=== PATIENT | female | born 1970 | race Caucasian/White ===

== ENCOUNTER 2021-05-11 17:10 | Emergency (ER) | payer OTHER ==
[2021-05-11] MEDS ORDERED: HYDROmorphone 1 MG/ML Syringe IVPUSH ONE (17:20)
--- NOTE | 2021-05-11 17:26 | EDM.PDOC ---
ED HPI GENERAL MEDICAL PROBLEM - General Chief Complaint: Lower Extremity Injury/Pain Stated Complaint: [facility] Time Seen by Provider: 05/11/21 17:17 Source of Information: Reports: Patient, RN Notes Reviewed History Limitations: Reports: No Limitations - History of Present Illness INITIAL COMMENTS - FREE TEXT/NARRATIVE: Patient is a 51-year-old female brought into the ER via [facility] for a left ankle injury. Patient was outside of [facility], slipped on the ice and injured her left ankle. She is not sure if the ankle went underneath of her however she did have pain in this ankle directly after this and has not been able to place weight on the ankle. There is an obvious deformity noted, the patient's foot is displaced laterally. The foot itself is slightly julia in appearance, but she can still wiggle her toes and pulses are palpable. Not been able to move her ankle at the ankle joint. States she was given some pain medication in the ambulance, and review of EMS notes states this is 1 mg IV Dilaudid. States that this helped a little bit. Patient denies any other sick- like symptoms, fever/chills, cough/shortness of breath, nausea/vomiting /diarrhea. States that she last ate at around 11 AM. Left Ankle Pain Score (Numeric/FACES): 8 - Related Data Allergies Allergy/AdvReac Type Severity Reaction Status Date / Time No Known Allergies Allergy Verified 05/11/21 17:15 Home Meds: Home Meds ALPRAZolam [Xanax] 1 mg PO DAILY 05/11/21 [History] ALPRAZolam [Xanax] 2 mg PO BEDTIME 05/11/21 [History] Venlafaxine [Effexor] 1 tab PO DAILY 05/11/21 [History] oxyCODONE HCl/Acetaminophen [Oxycodone-Acetaminophen 5-325] 1 tab PO Q6H PRN #20 tablet 05/11/21 [Rx] Past Medical History HEENT History: Reports: Impaired Vision Psychiatric History: Reports: Anxiety Other Endocrine/Metabolic History: thyroid goiter removed half thyroid Social & Family History - Tobacco Use Tobacco Use Status *Q: Current Every Day Tobacco User Years of Tobacco use: 30 Packs/Tins Daily: 1 Used Tobacco, but Quit: No - Caffeine Use Caffeine Use: Reports: Coffee, Soda - Recreational Drug Use Recreational Drug Use: Yes Review of Systems - Review of Systems Review Of Systems: Comprehensive ROS is negative, except as noted in HPI. ED EXAM, GENERAL - Physical Exam Exam: See Below Exam Limited By: No Limitations General Appearance: Alert, WD/WN, No Apparent Distress Respiratory/Chest: No Respiratory Distress, Lungs Clear, Normal Breath Sounds, No Accessory Muscle Use, Chest Non-Tender Cardiovascular: Normal Peripheral Pulses, Regular Rate, Rhythm, No Edema GI/Abdominal: Normal Bowel Sounds, Soft, Non-Tender, No Distention, No Mass Extremities: Normal Capillary Refill, Other (Left foot is slightly julia in appearance, pulses are palpable and range of motion is with intact in the toes. Denying any numbness or tingling.) Neurological: Alert, Oriented, Normal Cognition, No Motor/Sensory Deficits Psychiatric: Normal Affect, Normal Mood Skin Exam: Warm, Dry, Intact, No Rash Course - Vital Signs Last Recorded V/S: Last Vital Signs Temp 99.2 F 05/11/21 18:43 Pulse 79 05/11/21 18:43 Resp 16 05/11/21 18:43 BP 147/91 H 05/11/21 18:43 Pulse Ox 98 05/11/21 18:43 - Orders/Labs/Meds Orders: Active Orders 24 hr Category Date Time Status Notify Provider Consults [RC] ASDIRECTED Care 05/11/21 17:58 Ordered Consult to Physician [CONS] Stat Cons 05/11/21 17:57 Ordered Ankle 2V Lt [CR] Stat Exams 05/11/21 19:06 Ordered DME for Discharge [COMM] Routine Oth 05/11/21 19:13 Ordered Meds: Medications Discontinued Medications Generic Name Dose Route Start Last Admin Trade Name Horacio PRN Reason Stop Dose Admin Fentanyl Confirm 05/11/21 18:22 Fentanyl 100 Mcg/2 Ml Sdv Administered 05/11/21 18:23 Dose 100 mcg .ROUTE .STK-MED ONE Hydromorphone HCl 1 mg 05/11/21 17:20 05/11/21 17:28 Hydromorphone 1 Mg/Ml Syringe IVPUSH 05/11/21 17:21 1 mg ONETIME ONE Administration Midazolam HCl Confirm 05/11/21 18:23 Midazolam 1 Mg/Ml 2 Ml Sdv Administered 05/11/21 18:24 Dose 2 mg .ROUTE .STK-MED ONE Propofol Confirm 05/11/21 18:22 Propofol 200 Mg/20 Ml Sdv Administered 05/11/21 18:23 Dose 200 mg .ROUTE .STK-MED ONE - Re-Assessments/Exams Free Text/Narrative Re-Assessment/Exam: 05/11/21 17:25 Patient presents to the ER for left ankle injury, we will go ahead and repeat 1 mg IV Dilaudid, and get x-rays for initial management. 05/11/21 17:56 X-rays demonstrate an ankle that is posteriorly dislocated, with a distal tib- fib fracture. Due to the nature of the injury, and census in the ER, I have consulted Dr. Rehman for further management of this patient and he did agree. 05/11/21 18:15 Official radiology read has been performed, trimalleolar fracture with additional fracture of the anterior tibial corner, dislocation of the tibia and fibula anterior to the talus. There was some soft tissue swelling, and calcaneal spur is also identified. Again Dr. Rehman will begin to manage this patient for splinting and reduction purposes. 05/11/21 19:14 Dr. Rehman was in and was able to get the ankle reduced back and splinted without difficulty. States that post reduction films are acceptable. Patient will be given some crutches from the DME closet to remain nonweightbearing on the extremity. Departure - Departure Time of Disposition: 19:17 Disposition: Home, Self-Care 01 Condition: Good Clinical Impression: Closed trimalleolar fracture Qualifiers: Encounter type: initial encounter Laterality: left Qualified Code(s): S82.852A - Displaced trimalleolar fracture of left lower leg, initial encounter for closed fracture - Discharge Information *PRESCRIPTION DRUG MONITORING PROGRAM REVIEWED*: Yes *COPY OF PRESCRIPTION DRUG MONITORING REPORT IN PATIENT MONET: No Prescriptions: oxyCODONE HCl/Acetaminophen [Oxycodone-Acetaminophen 5-325] 1 tab PO Q6H PRN #20 tablet PRN Reason: Pain Instructions: Complex Ankle Fracture, Pain Medicine Instructions, [id number] Referrals: Jakob Rehman MD [Physician] - Forms: ED Department Discharge Additional Instructions: You have been evaluated in the ED for your left ankle injury. Your x-ray demonstrated a trimalleolar fracture of your left ankle that was dislocated as well, your injury was reduced, and a splint was placed on your leg at this time. You were given crutches for ongoing management, so you may remain nonweightbearing on the extremity. Please use ice as tolerated to the affected area. You may elevate the affected area to provide further relief from swelling. You may take Tylenol 500 mg or ibuprofen 600mg q6 hrs for pain relief. Please do so until you have a tolerable level of pain with activity. Do not exceed 4000mg Tylenol, Do not exceed 3200mg ibuprofen in a 24 hour time period. You were given a prescription for a strong pain medication, oxycodone/acetaminophen 5/325, please take 1 tab every 6 hours as needed for pain not relieved by Tylenol or ibuprofen alone. Please note this does contain Tylenol in it, so do not take more than 4000 mg in a 24-hour time span. These medications can be addictive, so please take as few as possible to achieve adequate pain control. These meds can also be quite constipating, recommend that you increase your oral fluid intake and take a stool softener like MiraLAX while taking these medications. This medication was electronically sent to the [facility] located in the [employer] store. Please call Ortho for follow-up and further evaluation Dr. Rehman is our orthopedic surgeon, his office number is [phone]. Please call and set up an appointment as soon as possible for further management. Please return to ED if your symptoms should change or worsen. Sepsis Event Note (ED) - Evaluation Sepsis Screening Result: No Definite Risk - Focused Exam Vital Signs: Vital Signs Temp Pulse Resp BP Pulse Ox 05/11/21 18:43 99.2 F 79 16 147/91 H 98 05/11/21 17:31 98.3 F 70 18 131/95 H 100 05/11/21 17:12 96.8 F L 66 20 146/94 H 100 - My Orders Last 24 Hours: My Active Orders 05/11/21 17:57 Consult to Physician [CONS] Stat 05/11/21 17:58 Notify Provider Consults [RC] ASDIRECTED 05/11/21 19:06 Ankle 2V Lt [CR] Stat 05/11/21 19:13 DME for Discharge [COMM] Routine - Assessment/Plan Last 24 Hours: My Active Orders 05/11/21 17:57 Consult to Physician [CONS] Stat 05/11/21 17:58 Notify Provider Consults [RC] ASDIRECTED 05/11/21 19:06 Ankle 2V Lt [CR] Stat 05/11/21 19:13 DME for Discharge [COMM] Routine
--- NOTE | 2021-05-11 17:50 | CR ---
Left ankle: Portable AP and lateral views of the ankle were obtained. Comparison: No prior study is available. Fracture is seen within the lateral malleolus, medial malleolus and posterior malleolus. Fracture is also noted off the anterior corner of the tibia. There is dislocation of the tibia and fibula anterior to the talus. Calcaneal spurs are seen within the plantar margin and within the attachment of the Achilles tendon. Diffuse soft tissue swelling is noted. Impression: 1. Trimalleolar fracture with additional fracture off the anterior tibial corner. 2. Dislocation of the tibia and fibula anterior to the talus. 3. Calcaneal spurs and soft tissue swelling. Diagnostic code #3
--- NOTE | 2021-05-11 18:16 | PCM.PREANE ---
Preanesthetic Assessment - Procedure Proposed Procedure: Closed reduction of left ankle - Anesthesia/Transfusion/Family Hx Anesthesia History: Prior Anesthesia Reaction Type of Anesthesia Reaction: Excessive Nausea/Vomiting Family History of Anesthesia Reaction: No Transfusion History: No Prior Transfusion(s) Intubation History: Unknown - Review of Systems General: No Symptoms Pulmonary: No Symptoms Cardiovascular: No Symptoms Gastrointestinal: No Symptoms Neurological: Numbness (to left lower foot), Tingling Other: Reports: Easy Bruising, Thyroid Problems (partial thyroid), Depression, Anxiety - Physical Assessment NPO Status Date: 05/11/21 NPO Status Time: 11:00 Vital Signs: Last Vital Signs Temp 98.3 F 05/11/21 17:31 Pulse 70 05/11/21 17:31 Resp 18 05/11/21 17:31 BP 131/95 H 05/11/21 17:31 Pulse Ox 100 05/11/21 17:31 Height: 1.78 m Weight: 92.986 kg ASA Class: 2 Mental Status: Alert & Oriented x3 Dentition: Reports: Dentures (upper dentures), Missing Tooth/Teeth Thyro-Mental Finger Breadths: 2 Mouth Opening Finger Breadths: 3 ROM/Head Extension: Full Lungs: Clear to Auscultation, Normal Respiratory Effort Cardiovascular: Regular Rate, Regular Rhythm, No Murmurs - Allergies Allergies/Adverse Reactions: Allergies Allergy/AdvReac Type Severity Reaction Status Date / Time No Known Allergies Allergy Verified 05/11/21 17:15 - Acknowledgements Anesthesia Type Planned: MAC Pt an Appropriate Candidate for the Planned Anesthesia: Yes Alternatives and Risks of Anesthesia Discussed w Pt/Guardian: Yes Pt/Guardian Understands and Agrees with Anesthesia Plan: Yes PreAnesthesia Questionnaire HEENT History: Reports: Impaired Vision Cardiovascular History: Reports: None Respiratory History: Reports: None Gastrointestinal History: Reports: None Genitourinary History: Reports: None Musculoskeletal History: Reports: Other (See Below) (Left ankle injury) Neurological History: Reports: Migraines Psychiatric History: Reports: Anxiety Other Endocrine/Metabolic History: thyroid goiter removed half thyroid Hematologic History: Reports: None Immunologic History: Reports: None Oncologic (Cancer) History: Reports: None Dermatologic History: Reports: None - Past Surgical History HEENT Surgical History: Reports: Tonsillectomy Endocrine Surgical History: Reports: Thyroidectomy (partial) - SUBSTANCE USE Tobacco Use Status *Q: Current Every Day Tobacco User Tobacco Use Within Last Twelve Months: Cigarettes Second Hand Smoke Exposure: Yes Days Per Week of Alcohol Use: 0 Number of Drinks Per Day: 0 Total Drinks Per Week: 0 Recreational Drug Use History: No - HOME MEDS Home Medications: Home Meds ALPRAZolam [Xanax] 1 mg PO DAILY 05/11/21 [History] ALPRAZolam [Xanax] 2 mg PO BEDTIME 05/11/21 [History] Venlafaxine [Effexor] 1 tab PO DAILY 05/11/21 [History] - CURRENT (IN HOUSE) MEDS Current Meds: Current Medications Discontinued Medications Hydromorphone HCl (Hydromorphone 1 Mg/Ml Syringe) 1 mg IVPUSH ONETIME ONE Stop: 05/11/21 17:21 Last Admin: 05/11/21 17:28 Dose: 1 mg Documented by:
[2021-05-11] MEDS ORDERED: fentaNYL 100 MCG/2 ML SDV ONE (18:22)
[2021-05-11] MEDS ORDERED: Propofol 200 MG/20 ML SDV ONE (18:22)
[2021-05-11] MEDS ORDERED: Midazolam 1 MG/ML 2 ML SDV ONE (18:23)
--- NOTE | 2021-05-11 20:42 | PCM48HPAN ---
Post Anesthesia Note - EVALUATION WITHIN 48HRS OF ANESTHETIC Vital Signs in Normal Range: Yes Patient Participated in Evaluation: Yes Respiratory Function Stable: Yes Airway Patent: Yes Cardiovascular Function Stable: Yes Hydration Status Stable: Yes Pain Control Satisfactory: Yes Nausea and Vomiting Control Satisfactory: Yes Mental Status Recovered: Yes Vital Signs: Last Vital Signs Temp 99.2 F 05/11/21 18:43 Pulse 79 05/11/21 18:43 Resp 16 05/11/21 18:43 BP 147/91 H 05/11/21 18:43 Pulse Ox 98 05/11/21 18:43 Vital signs at 1911: BP 119/60 HR 80 RR 16 100% RA 99.0
--- NOTE | 2021-05-11 21:05 | CR ---
Left ankle: AP and lateral views of the left ankle were obtained. Comparison: Prior ankle study performed earlier on the same date (5:40 PM). Previous dislocation has been reduced. Ankle mortise is fairly symmetric. Previous fractures show much better alignment. Plaster splint is in place. Impression: 1. Previous dislocation has been reduced. 2. Displaced ankle fractures also show good reduction. Diagnostic code #3
--- NOTE | 2021-05-16 10:13 | OR ---
DATE OF OPERATION: 05/11/2021 SURGEON: Jakob Rehman MD OPERATION PERFORMED: Closed reduction and splinting of left ankle fracture dislocation. PREOPERATIVE DIAGNOSIS: Left ankle fracture dislocation. POSTOPERATIVE DIAGNOSIS: Left ankle fracture dislocation. PROPERTY FIELD ADJUSTER: None. ANESTHESIA PROVIDER: Topher Bryant. ANESTHESIA: MAC, sedation. ESTIMATED BLOOD LOSS: Not applicable. COMPLICATIONS: None. DESCRIPTION OF PROCEDURE: The patient was identified in the [facility]. Consent was obtained. At this time, adequate anesthesia was performed, and left ankle fracture dislocation was reduced. A sugar-tong as well as posterior slab splint were placed and molded. The patient then had post reduction radiograph showing concentrically reduced ankle mortise. The patient will ice and elevate and will follow up with my partners in [place] for possible surgical fixation. ANYA /[id number]
--- NOTE | 2021-05-16 10:16 | CONS ---
CONSULTING PHYSICIAN: Jakob Rehman MD DATE OF CONSULTATION: 05/11/2021 HISTORY OF PRESENT ILLNESS: This is a 51-year-old female who fell at the [employer] outside of work in [place]. The patient subsequently had an immediate ankle pain and deformity. She was brought to the emergency department where she was found to have an ankle fracture dislocation. She denies previous pain or injury to the left ankle before this happened. Subsequently was in need of reduction and I was consulted. OBJECTIVE: Skin is intact. She is neurovascularly intact. She has 2+ distal pulses. No mottling is noted. No open areas to the left ankle are noted. Radiographs were reviewed showing displaced ankle fracture dislocation with lateral malleolus fracture and possible small avulsion fracture of the medial malleolus. ASSESSMENT: Left ankle fracture dislocation. PLAN: Patient and I did consent to doing a reduction and splinting of the left ankle fracture dislocation. The risks, benefits, complications and alternatives were discussed. Consent was obtained. Please see the procedure note. The patient will follow up with the partners in [place] for possible surgical fixation as I will be out the next few weeks. MMODAL /[id number]
== END 2021-05-11 19:48 | disposition home or self-care (01) ==
LOC: JD.ED 17:10
DX: S82.852A Displaced trimalleolar fracture of left lower leg, initial encounter for closed fracture (principal); Z72.0 Tobacco use; W00.0XXA Fall on same level due to ice and snow, initial encounter
CPT/HCPCS: 27818; 73600; 96374; 99283; J1170; J2250; J2704; J3010; 01462

== ENCOUNTER 2023-09-16 21:56 | Emergency (ER) | payer OTHER ==
[2023-09-16] MEDS: Acetaminophen/HYDROcodone 325-5 MG Tab PO ONE (23:42)
== END 2023-09-17 00:28 | disposition home or self-care (01) ==
LOC: JD.ED 21:56
DX: S62.112A Displaced fracture of triquetrum [cuneiform] bone, left wrist, initial encounter for closed fracture (principal); F17.210 Nicotine dependence, cigarettes, uncomplicated; Z79.899 Other long term (current) drug therapy; W01.0XXA Fall on same level from slipping, tripping and stumbling without subsequent striking against object, initial encounter; Y99.0 Civilian activity done for income or pay; Y93.89 Activity, other specified
CPT/HCPCS: 29125; 73110; 73130; 99283; A9270